=== PATIENT | male | born 1995 | race Caucasian/White ===

== ENCOUNTER 2024-03-30 04:51 | Emergency (ER) | payer BC | END 2024-03-30 08:10 | disposition home or self-care (01) | LOC: JD.ED 04:51 | DX: S82.891A Other fracture of right lower leg, initial encounter for closed fracture (principal); F17.210 Nicotine dependence, cigarettes, uncomplicated; X50.0XXA Overexertion from strenuous movement or load, initial encounter; Y93.44 Activity, trampolining | CPT/HCPCS: 27788; 73600-26-RT; 73600-RT; 73610-26-RT; 73610-RT; 99283-25 ==